=== PATIENT | male | born 1960 | race Caucasian/White ===

== ENCOUNTER 2016-05-12 10:38 | Emergency (ER) | payer BC ==
[2016-05-12 12:30] VITALS: BP 153/97
--- NOTE | 2016-05-12 12:53 | UC ---
Throat Pain/Nasal Pierre HPI - HPI Summary HPI Summary: Patient has had sinus congestion, stong productive cough, on and off fever, fatigue and little relief with over the counter medications - History of Current Complaint Chief Complaint: UCRespiratory Stated Complaint: COUGH,CHEST CONGESTION Time Seen by Provider: 05/12/16 12:40 Hx Obtained From: Patient Onset/Duration: Gradual Onset, Lasting Weeks Severity: Moderate Cough: Productive Associated Signs & Symptoms: Positive: Dysphagia, Wheezing, Sinus Discomfort, Nasal Discharge - Epiglottits Risk Factors Epiglottis Risk Factors: Negative - Allergies/Home Medications Allergies/Adverse Reactions: Allergies Allergy/AdvReac Type Severity Reaction Status Date / Time No Known Allergies Allergy Verified 05/12/16 12:24 Home Medications: Home Medications Ibuprofen TAB* [Advil TAB*] 600 mg PO Q6H PRN 05/12/16 [History Confirmed ] Nijvglldkgrnj-Ngprvkomoe-[id number] [Nyquil Severe Cold/Flu 5-6.25-10-325 mg/15Ml] 1 liq PO BEDTIME PRN 05/12/16 [History Confirmed 05/12/16] PMH/Surg Hx/FS Hx/Imm Hx Previously Healthy: Yes - Surgical History Surgical History: Yes Surgery Procedure, Year, and Place: appy - Family History Known Family History: Negative: Cardiac Disease, Hypertension - Social History Alcohol Use: Occasionally Substance Use Type: None Smoking Status (MU): Never Smoked Tobacco - Immunization History Most Recent Influenza Vaccination: not this season Review of Systems Constitutional: Chills, Fatigue Skin: Negative Eyes: Negative ENT: Sore Throat, Ear Ache, Nasal Discharge Respiratory: Cough Cardiovascular: Negative Gastrointestinal: Negative Genitourinary: Negative Motor: Negative Neurovascular: Negative Musculoskeletal: Myalgia Neurological: Headache Psychological: Negative All Other Systems Reviewed And Are Negative: Yes Physical Exam Triage Information Reviewed: Yes Appearance: No Pain Distress, Well-Nourished, Ill-Appearing Vital Signs: Initial Vital Signs Temp 98.9 F 05/12/16 12:25 Pulse 94 05/12/16 12:25 Resp 18 05/12/16 12:25 BP 153/97 05/12/16 12:25 Pulse Ox 96 05/12/16 12:25 Vital Signs Reviewed: Yes Eye Exam: Normal Eyes: Positive: Conjunctiva Clear ENT: Positive: Pharyngeal erythema, Nasal congestion, Nasal drainage, TM bulging , Muffled/hoarse voice Dental Exam: Normal Neck: Positive: Supple, Nontender, No Lymphadenopathy Respiratory Exam: Normal Respiratory: Positive: Chest non-tender, No respiratory distress, No accessory muscle use, Rhonchi, Wheezing, Other: - productive cough present with exam Cardiovascular Exam: Normal Cardiovascular: Positive: RRR, No Murmur Abdominal Exam: Normal Abdomen Description: Positive: Nontender, No Organomegaly, Soft Musculoskeletal Exam: Normal Neurological Exam: Normal Psychological Exam: Normal Skin Exam: Normal Throat Pain/Nasal Course/Dx - Course Course Of Treatment: hx obtained, exam performed, medications reviewed, treated for sinusitis and bronchitis - Differential Dx/Diagnosis Differential Diagnosis/HQI/PQRI: Influenza, Laryngitis, Otitis Media, Pharyngitis, Sinusitis, Tonsillitis, URI Provider Diagnoses: Bronchitis. Sinusitis Discharge - Discharge Plan Condition: Stable Disposition: HOME Patient Education Materials: Acute Bronchitis (ED), Sinusitis (ED) Additional Instructions: take the medication as prescribed. Increase fluid intake and get plenty of rest.
== END 2016-05-12 13:08 | disposition home or self-care (01) ==
LOC: UCCORT 10:38
DX: J40 Bronchitis, not specified as acute or chronic (principal); J32.9 Chronic sinusitis, unspecified
CPT/HCPCS: 99202; G0463